=== PATIENT | male | born 1970 | race Caucasian/White ===

== ENCOUNTER 2019-08-01 10:00 | Emergency (ER) | payer OTHER ==
[2019-08-01] MEDS ORDERED: Ketorolac 60 MG/2 ML SDV IM ONE (10:18)
[2019-08-01] MEDS ORDERED: Acetaminophen/oxyCODONE 325-5 MG Tab PO STA (10:35)
[2019-08-01] MEDS ORDERED: Ondansetron 4 MG Tab.DIS PO ONE (10:35)
--- NOTE | 2019-08-01 10:56 | EDM.PDOC ---
ED HPI GENERAL MEDICAL PROBLEM - General Chief Complaint: Back Pain or Injury Stated Complaint: LOWER BACK PAIN, POSSIBLY KIDNEY STONES Time Seen by Provider: 08/01/19 10:35 Source of Information: Reports: Patient History Limitations: Reports: No Limitations - History of Present Illness INITIAL COMMENTS - FREE TEXT/NARRATIVE: 48 yo male visiting from [place] presents with L low back pain not associated with exertion or injury that reminds him of a prior kidney stone. No fever or dysuria or gross hematuria. Had mild nausea at home. Pain is not worse with movement. Has a after school driver. Onset: Today, Sudden Onset Date: 08/01/19 Duration: Hour(s):, Waxing/Waning Location: Reports: Back (L low) Quality: Reports: Ache Severity: Moderate Improves with: Reports: None Worsens with: Reports: None Context: Reports: Other (see HPI) Associated Symptoms: Reports: Nausea/Vomiting (no vomiting). Denies: Cough, Diaphoresis, Fever/Chills, Rash, Shortness of Breath Treatments SHUTTLE INSPECTOR: Reports: Other (see below) (none) left flank Pain Score (Numeric/FACES): 6 - Related Data Allergies Allergy/AdvReac Type Severity Reaction Status Date / Time No Known Allergies Allergy Verified 08/01/19 10:16 Home Meds: Home Meds Sertraline HCl [Zoloft] 20 mg PO DAILY 08/01/19 [History] atorvaSTATin [Lipitor] 20 mg PO BEDTIME 08/01/19 [History] metFORMIN [Glucophage XR] 500 mg PO BIDMEALS 08/01/19 [History] Past Medical History Cardiovascular History: Reports: High Cholesterol Genitourinary History: Reports: Renal Calculus Psychiatric History: Reports: Depression Endocrine/Metabolic History: Reports: Diabetes, Type II - Past Surgical History Cardiovascular Surgical History: Reports: None Social & Family History - Tobacco Use Smoking Status *Q: Never Smoker - Recreational Drug Use Recreational Drug Use: No ED ROS GENERAL - Review of Systems Review Of Systems: See Below Constitutional: Reports: No Symptoms HEENT: Reports: No Symptoms Respiratory: Reports: No Symptoms Cardiovascular: Reports: No Symptoms GI/Abdominal: Reports: Nausea. Denies: Vomiting : Reports: Flank Pain (L low back) Musculoskeletal: Reports: Back Pain (L low) Skin: Reports: No Symptoms Neurological: Reports: No Symptoms ED EXAM, RENAL/ - Physical Exam Exam: See Below Exam Limited By: No Limitations General Appearance: Alert, WD/WN, No Apparent Distress, Obese Eye Exam: Bilateral Eye: Normal Inspection Ears: Hearing Grossly Normal Nose: Normal Inspection, No Blood Throat/Mouth: Normal Inspection, Normal Lips, Normal Oropharynx, Normal Voice, No Airway Compromise Head: Atraumatic, Normocephalic Neck: Normal Inspection Respiratory/Chest: No Respiratory Distress, Lungs Clear, Normal Breath Sounds, No Accessory Muscle Use Cardiovascular: Regular Rate, Rhythm, No Edema GI/Abdominal: Soft, Non-Tender Back Exam: Normal Inspection, Full Range of Motion, CVA Tenderness (L), Paraspinal Tenderness (mild on palpation in area of his pain). No: CVA Tenderness (R), Decreased Range of Motion, Muscle Spasm, Vertebral Tenderness Extremities: Normal Inspection, Normal Range of Motion, Non-Tender, No Pedal Edema Neurological: Alert, Oriented, CN II-XII Intact, Normal Cognition, No Motor/ Sensory Deficits Psychiatric: Normal Affect, Normal Mood Skin Exam: Warm, Dry, Intact, Normal Color, No Rash Course - Vital Signs Last Recorded V/S: Last Vital Signs Temp 36.4 C 08/01/19 10:20 Pulse 80 08/01/19 12:01 Resp 12 08/01/19 12:01 BP 145/82 H 08/01/19 12:01 Pulse Ox 98 08/01/19 12:01 - Orders/Labs/Meds Labs: Laboratory Tests 08/01/19 Range/Units 10:15 Urine Color Yellow (YELLOW) Urine Appearance Clear (CLEAR) Urine pH 6.0 (5.0-8.0) Ur Specific [place] >= 1.030 (1.008-1.030) Urine Protein Negative (NEGATIVE) mg/dL Urine Glucose (UA) Negative (NEGATIVE) mg/dL Urine Ketones Negative (NEGATIVE) mg/dL Urine Occult Blood Moderate H (NEGATIVE) Urine Nitrite Negative (NEGATIVE) Urine Bilirubin Negative (NEGATIVE) Urine Urobilinogen 0.2 (0.2-1.0) EU/dL Ur Leukocyte Esterase Negative (NEGATIVE) Urine RBC 0-5 (0-5) Urine WBC Not seen (0-5) Ur Epithelial Cells Not seen Amorphous Sediment Rare Urine Bacteria Not seen Urine Mucus Not seen Urine Other See note Meds: Medications Discontinued Medications Generic Name Dose Route Start Last Admin Trade Name Freq PRN Reason Stop Dose Admin Ketorolac Tromethamine 60 mg 08/01/19 10:18 08/01/19 10:28 Toradol IM 08/01/19 10:19 60 mg ONETIME ONE Administration Ondansetron HCl 4 mg 08/01/19 10:35 08/01/19 10:43 Zofran Odt PO 08/01/19 10:36 4 mg ONETIME ONE Administration Oxycodone/Acetaminophen 2 tab 08/01/19 10:35 08/01/19 10:43 Percocet 325-5 Mg PO 08/01/19 10:36 2 tab ONETIME STA Administration - Radiology Interpretation Free Text/Narrative:: CT abd/pelvis without contrast-2 mm mid ureteral stone CT Results Date: 08/01/19 Departure - Departure Time of Disposition: 12:10 Disposition: Home, Self-Care 01 Condition: Fair Clinical Impression: Ureterolithiasis - Discharge Information *PRESCRIPTION DRUG MONITORING PROGRAM REVIEWED*: No *COPY OF PRESCRIPTION DRUG MONITORING REPORT IN PATIENT GHANSHYAM: No Referrals: PCP,None [Primary Care Provider] - Forms: ED Department Discharge Additional Instructions: Drink ample fluids. Strain your urine and save any sediment. Take ibuprofen 600 mg every 6 hrs with food for pain relief, next dose at 5 pm. Add Percocet 1-2 every 6 hrs as needed for added relief. Recheck with your doctor upon return home. No driving if taking Percocet. May take acetaminophen up to 1000 mg every 6 hrs instead of Percocet. Sepsis Event Note (ED) - Evaluation Sepsis Screening Result: No Definite Risk - Focused Exam Vital Signs: Vital Signs Temp Pulse Resp BP Pulse Ox 08/01/19 12:01 80 12 145/82 H 98 08/01/19 10:20 36.4 C 78 16 148/71 H 97 08/01/19 10:12 36.4 C 78 16 148/71 H 97
--- NOTE | 2019-08-01 12:00 | CT ---
Abdomen Pelvis wo Cont CLINICAL HISTORY: Left back and flank pain COMPARISON: None. TECHNIQUE: Axial tomographic images are obtained from the dome of the diaphragm to the pubic symphysis without IV contrast enhancement. No oral contrast was used. Auto dosage reduction and iterative reconstruction techniques employed. FINDINGS: The lung bases are clear. The liver shows some diffuse fatty infiltration. The gallbladder has a normal contour. The spleen has a normal size and shape. The pancreas shows some generalized fatty infiltration. There is no mass or inflammatory change.. The adrenal glands appear normal bilaterally. The left kidney is hydronephrotic. There is some perinephric stranding. There is a mild dilatation of the proximal ureter. There is a punctate stone in the mid ureter measuring approximately 2 mm. Distal ureter has normal caliber. There is a retroaortic left renal vein. Right kidney has normal appearance bladder has normal appearance. The aorta has a normal contour. There is no suspicious retroperitoneal adenopathy. Small intestinal configuration is nonacute. Appendix has normal contour. IMPRESSION: 2 mm stone in the mid ureter causing mild hydronephrosis and hydroureter proximal joint. There is some mild perinephric stranding. Fatty infiltration of the liver.
== END 2019-08-01 12:20 | disposition home or self-care (01) ==
LOC: JP.ED 10:00
DX: N13.2 Hydronephrosis with renal and ureteral calculous obstruction (principal); E78.00 Pure hypercholesterolemia, unspecified; E11.9 Type 2 diabetes mellitus without complications; F32.9 Major depressive disorder, single episode, unspecified; Z79.84 Long term (current) use of oral hypoglycemic drugs; Z79.899 Other long term (current) drug therapy
CPT/HCPCS: 74176; 81001; 96372; 99284; A9270; J1885